=== PATIENT | male | born 1985 | race Caucasian/White ===

== ENCOUNTER 2023-04-16 00:43 | Emergency (ER) | payer MEDICAID, OTHER ==
[~2023-04-16] VITALS: Ht 182.9 cm; Wt 90.9 kg
[2023-04-16 00:51] VITALS: BP 127/82
[2023-04-16] MEDS ORDERED: proparacaine 0.5% ophthalmic drops 15ml LEFTEYE ONE (04:10)
== END 2023-04-16 05:27 | disposition home or self-care (01) ==
LOC: ER 00:44
DX: T15.92XA Foreign body on external eye, part unspecified, left eye, initial encounter (principal); F41.9 Anxiety disorder, unspecified; Z86.14 Personal history of Methicillin resistant Staphylococcus aureus infection; X58.XXXA Exposure to other specified factors, initial encounter; Y93.89 Activity, other specified; Y92.89 Other specified places as the place of occurrence of the external cause; Y99.8 Other external cause status
CPT/HCPCS: 99283; J7030